=== PATIENT | female | born 1975 | race Caucasian/White ===

== ENCOUNTER 2016-10-02 17:50 | Inpatient (IN) | payer MEDICAID, OTHER ==
[~2016-10-02] VITALS: Ht 152.4 cm; Wt 70.8 kg
[2016-10-02] MEDS ORDERED: BETAMETHASONE ACET/BETAMET 30 MG/5 ML VIAL IM NR (18:30)
[2016-10-02] MEDS ORDERED: PREN-88 PO (18:36)
[2016-10-02] MEDS ORDERED: MAGN400T26 PO (18:36)
[2016-10-02] MEDS ORDERED: NIFE90TA2 PO (18:38)
[2016-10-02] MEDS: LACTATED RINGERS 1,000 ML IV SCH (19:15)
[2016-10-02 19:52] LABS: BASOPHILS % 0.1 % (0.0-2.0); EOSINOPHILS % 1.5 % (0.0-5.0); HEMATOCRIT. 29.9 % (36.0-48.0); HEMOGLOBIN. 10.4 g/dL (12.0-16.0); LYMPHOCYTES % 17.3 % (20.0-50.0); MEAN CORPUSCULAR HEMOGLOBIN 31.4 pg (28.0-32.0); MEAN CORPUSCULAR VOLUME 90.3 fL (81.0-99.0); MEAN PLATELET VOLUME 6.9 fl (7.4-10.4); MONOCYTES % 7.8 % (2.0-8.0); NEUTROPHILS % 73.3 % (40.0-76.0); PLATELET 239 x1000/uL (130-400)
[2016-10-02 20:17] LABS: CLARITY URINE CLEAR (CLEAR); COLOR URINE YELLOW (YELLOW); KETONES URINE NEGATIVE (NEGATIVE); LEUKOCYTE ESTERASE URINE NEGATIVE (NEGATIVE); NITRITE URINE NEGATIVE (NEGATIVE); OCCULT BLOOD URINE NEGATIVE (NEGATIVE); PH URINE 6.5 (4.5-8.0); PROTEIN URINE NEGATIVE (NEGATIVE); SPECIFIC GRAVITY URINE 1.012 (1.005-1.030); UROBILINOGEN URINE 0.2 E.U./dL (0.2-1.0)
[2016-10-02] MEDS: CEFAZOLIN 2,000 MG in DEXT 5% WATER 100 ML IV SCH (20:33)
[2016-10-02] MEDS: NIFEDIPINE 10MG CAPSULE PO SCH (22:00)
[2016-10-02] MEDS ORDERED: NIFEDIPINE 10MG CAPSULE PO SCH (22:00)
[2016-10-02] MEDS: INDOMETHACIN 50MG CAPSULE PO SCH (22:12)
[2016-10-03] MEDS: LACTATED RINGERS 1,000 ML IV SCH (02:46)
[2016-10-03] MEDS: NIFEDIPINE 10MG CAPSULE PO SCH ×3 (04:00→18:00)
[2016-10-03] MEDS: CEFAZOLIN 2,000 MG in DEXT 5% WATER 100 ML IV SCH ×3 (04:22→19:46)
[2016-10-03] MEDS: INDOMETHACIN 50MG CAPSULE PO SCH ×2 (06:03→14:34)
[2016-10-03] MEDS: MAGNESIUM OXIDE 400MG TABLET PO SCH ×2 (08:56→17:44)
[2016-10-03] MEDS ORDERED: BETAMETHASONE ACET/BETAMET 30 MG/5 ML VIAL IM SCH (14:00)
[2016-10-03 21:21] VITALS: BP 94/59
== END 2016-10-03 21:40 | disposition home or self-care (01) | DRG 566 ==
LOC: L&D 17:50 → OBSVTOIN 17:50 → 7EST PP/OB 21:30
PROVIDERS: ADMIT Acupuncturist; ATTEND Acupuncturist
DX: O26.872 Cervical shortening, second trimester (principal); O60.02 Preterm labor without delivery, second trimester; O34.211 Maternal care for low transverse scar from previous cesarean delivery; O23.42 Unspecified infection of urinary tract in pregnancy, second trimester; Z88.0 Allergy status to penicillin; Z79.899 Other long term (current) drug therapy; Z3A.25 25 weeks gestation of pregnancy; O09.522 Supervision of elderly multigravida, second trimester
CPT/HCPCS: 36415; 81003; 83036; 84450; 84460; 85025; 87086; 96360; 96361; 96372; 99281; G0378; J0690; J0702; J7060; J7120